=== PATIENT | male | born 1960 | race African-American/Black ===

== ENCOUNTER 2017-02-09 14:19 | Inpatient (IN) | payer OTHER ==
[~2017-02-09] VITALS: Ht 182.9 cm; Wt 110.9 kg
[2017-02-09] VITALS (19 sets, daily range): BP systolic 102–147; BP diastolic 61–79
--- NOTE | ~2017-02-09 | P ---
[facility] [place] [address] PROCEDURE REPORT Name: SHANNAN SIEGEL Room #: 439-P ADM IN M.R.#: [id number] Admission: 02/09/17 Attend Phys: Nancy Robbins Discharge: Date of : 58 Report #: [id number] THIS REPORT FOR: //name// CC: AMILCAR physician/PCP Nancy Robbins MD DATE OF SERVICE: 02/10/2017 PROCEDURE PERFORMED: Upper endoscopy with biopsies. HISTORY OF PRESENT ILLNESS: The patient is a 56-year-old male, recent history of dark stools and anemic. He had blood transfusion. He is currently on a Protonix drip. Colonoscopy was just performed as a nuclear medicine scan was positive near the hepatic flexure. However, no bleeding site was seen on colonoscopy. Plan therefore is upper endoscopy. PROCEDURE: The risks and benefits of the procedure were explained to the patient, those risks including, but not limited to bleeding, perforation, and the risk of sedation. He understood these risks and gave informed consent. Sedation was given using propofol per anesthesia. Next, using a standard Reclogn upper endoscope, the scope was placed in the patient's mouth and advanced under direct vision through the esophagus, stomach and into the second portion of the duodenum. The larynx was normal in appearance. The esophagus was normal throughout. The GE junction was normal. Overall, the gastric mucosa was normal. The pylorus was normal and patent. In the duodenal bulb and the first portion, there were 2 ulcers, the largest was approximately 1.2 cm, the smaller was 1 cm. There was no active bleeding or visible vessel. The second portion of the duodenum was normal. Gastric biopsies were obtained to rule out H. pylori. The scope was then withdrawn and the procedure terminated. The patient tolerated the procedure well. IMPRESSION: 1. Two duodenal ulcers, likely source of recent gastrointestinal bleed. 2. Otherwise, normal upper endoscopy. RECOMMENDATIONS: 1. Await biopsy results. 2. Continue PPI drip today and monitoring hemoglobin. Thank you for allowing me to participate in his care. By: 1148 [id number] Mele Frausto MD /nt
--- NOTE | ~2017-02-09 | P ---
[facility] [place] [address] PROCEDURE REPORT Name: SHANNAN SIEGEL Room #: 239-P ADM IN M.R.#: [id number] Admission: 02/09/17 Attend Phys: Nancy Robbins Discharge: Date of : 58 Report #: [id number] THIS REPORT FOR: //name// CC: AMILCAR physician/PCP Nancy Robbins MD DATE OF SERVICE: 02/10/2017 PROCEDURE PERFORMED: Colonoscopy with biopsies. HISTORY OF PRESENT ILLNESS: The patient is a 56-year-old male who presented with 3-day history of dark stools, was taking aspirin and ibuprofen, hemoglobin was 7.4, this dropped to 6.4 and he has undergone transfusion of 2 units. Bleeding scan actually showed active bleeding near the hepatic flexure. Plan is for colonoscopy; however, I also consented for possible EGD. PROCEDURE: The risks and benefits of the procedure were explained to the patient, those risks including, but not limited to bleeding, perforation, and the risk of sedation. He understood these risks and gave informed consent. Sedation was given using propofol per anesthesia. Next, a digital rectal exam was initially performed, which was normal. Next, using a standard Fujinon colonoscope, the scope was placed in the patient's anus and advanced under direct vision to the cecum. The overall prep was good. There was a lot of old blood scattered throughout the colon. Multiple washings and aspirations were performed. I spent at least 30 minutes looking throughout the colon today. The cecum and ileocecal valve were normal in appearance. The ascending, hepatic flexure was normal. Transverse colon was normal. In the descending colon, there was a single 4-mm sessile polyp. This was removed with cold forceps, otherwise normal. The sigmoid colon was normal. Rectal mucosa was normal. On retroflexion, no abnormalities were noted. I went back to the cecum several times, there was no active bleeding, no colitis, no obvious diverticula were seen. At this point, the scope was then withdrawn and the procedure terminated. The patient tolerated the procedure well. IMPRESSION: 1. Small colonic polyp. 2. Otherwise, normal colonoscopy. RECOMMENDATIONS: 1. Await biopsy results. 2. We will proceed with upper endoscopy today for further evaluation of recent GI bleed. [address] [address] PROCEDURE REPORT Name: SHANNAN SIEGEL Room #: 239-P [facility] IN M.R.#: [id number] Admission: 02/09/17 Attend Phys: Nancy Robbins Discharge: Date of : 58 Report #: [id number] Thank you for allowing me to participate in his care. By: 1145 1433 Mele Frausto MD /nt
--- NOTE | ~2017-02-09 | EKG ---
[address] [address] ELECTROCARDIOGRAM REPORT Name: SHANNAN SIEGEL Room #: 239-P ADM IN M.R.#: [id number] Admission: 02/09/17 Attend Phys: Nancy Robbins Discharge: Date of : 58 Report #: [id number] THIS REPORT FOR: //name// [facility] ED Test Date: 2017-02-09 Test Time: 15:34:58 Pat Name: SHANNAN SIEGEL Department: Room: 239 Gender: M Polysomnography Tech: MZOORinku : 1960 Requested By: Sim Barr Order Number: [id number] MD: Devyn Knight Measurements Intervals [place] Rate: 107 P: 64 TN: 149 QRS: -35 QRSD: 75 T: 79 QT: 329 QTc: 439 Interpretive Statements Sinus tachycardia Left axis deviation Nonspecific T abnormalities, lateral leads No previous ECG available for comparison Electronically Signed On 02-09-2017 22:28:55 [employer] by Devyn Knight [email or web address] <ELECTRONICALLY SIGNED> By: Devyn Knight MD 02/09/17 2228 1534 1534 Devyn Knight MD /FRANK
--- NOTE | ~2017-02-09 | S ---
[facility] [place] [address] SURGICAL PATH RPT PROCEDURE Name: SHANNAN HODGE Room #: 439-P DIS IN M.R.#: [id number] Admission: 02/09/17 Date of : 58 Discharge: 02/12/17 Report #: [id number] Path Case #: [id number] PATHOLOGY REPORT COLLECTION DATE: 02/10/2017 RECEIVED DATE: 02/10/2017 SUBMITTING PHYS: Dr. Mele Frausto OTHER PHYS: Dr. Nancy Robbins SPECIMEN(S) RECEIVED: A.Polyp at descending colon B.Bx of gastritis R/O H pylori * * * * * * * * * * * * FINAL DIAGNOSIS: A. Polyp at descending colon: - Polypoid fragment of colonic mucosa with edema and focal hyperplastic change. B. Bx of gastritis R/O H pylori: - H. pylori gastritis (Severe chronic active gastritis). - An H. pylori immunostain is POSITIVE (Block B1; appropriately reactive control). PATHOLOGIST: Pablo Murillo M.D. REPORT ELECTRONICALLY SIGNED BY: Pablo Murillo M.D. DATE/TIME: 02/14/2017 08:34 * * * * * * * * * * * * GROSS PATHOLOGY: A. Received in formalin labeled "Shannan Hodge, polyp at descending colon," is a segment of villeda soft tissue measuring 0.4 cm in maximum dimension. The specimen is submitted entirely in cassette A1. B. Received in formalin labeled "Shannan Hodge, BX of gastritis," are 3 segments of villeda soft tissue measuring 1.5 x 0.2 x 0.3 cm in aggregate dimensions and ranging from 0.3 to 0.6 cm in maximum dimension. The specimen is submitted entirely in cassette B1. (TSD; 02/10/2017) CLINICAL HISTORY: Pre-OP DX: Anemia Post-OP DX: Colon polyp, gastritis, duodenal ulcers INITIAL CPT CODE(S): A; 36370 B; [address], [address] [address] SURGICAL PATH RPT PROCEDURE Name: SHANNAN HODGE Room #: 439-P DIS IN M.R.#: [id number] Admission: 02/09/17 Date of : 58 Discharge: 02/12/17 Report #: [id number] Path Case #: [id number] Professional services performed by [facility] [address], [place] [address] Technical services performed by [facility] at [address] [place] [address], [facility] [address], [place] [address]. [facility] [place] [address] PHONE: [phone] DIRECTOR: Tuan Holley M.D. * * * END OF REPORT * * *
[2017-02-09] MEDS ORDERED: NEURONTIN600 MG PO (14:24)
[2017-02-09 14:47] LABS: ABSOLUTE NEUTROPHILS 10.9 thou/uL (1.4-8.2); BASOPHILS 0.2 % (0.0-2.0); HEMATOCRIT 22.8 % (42.0-52.0); HEMOGLOBIN 7.4 gm/dL (14.0-18.0); LYMPHOCYTES 12.8 % (24.0-44.0); MCH 28.4 pg (26.0-34.0); MCHC 32.4 g/dL (28.0-37.0); MCV 87.8 fL (80.0-100.0); MONOCYTES 4.4 % (1.0-8.0); PLATELET COUNT 197 thou/uL (150-400); POLYS 82.6 % (36.0-66.0); RDW 15.6 % (10.5-14.5); WBC 13.1 thou/uL (4.0-11.0)
[2017-02-09 14:48] LABS: MANUAL DIFF NO
[2017-02-09 14:55] LABS: ANION GAP 10 mmol/L (7-16); BUN 54 mg/dL (7-18); CHLORIDE 107 mmol/L (98-107); CO2 26 mmol/L (21-32); CREATININE 1.4 mg/dL (0.7-1.3); GLUCOSE 384 mg/dL (74-106); POTASSIUM 3.9 mmol/L (3.5-5.1); SODIUM 143 mmol/L (136-145)
[2017-02-09 15:01] LABS: ALBUMIN 2.6 g/dL (3.4-5.0); ALKALINE PHOSPHATASE 71 U/L (46-116); DIRECT BILIRUBIN < 0.1 mg/dL (<0.1-0.3); SGOT 16 U/L (15-37); SGPT 28 U/L (30-65); TOTAL BILIRUBIN 0.2 mg/dL (<0.1-1.0); TOTAL PROTEIN 5.7 g/dL (6.4-8.2)
[2017-02-09 20:04] LABS: INR 1.1; PROTIME 11.1 Seconds (9.3-11.4)
[2017-02-09 20:05] LABS: APTT 20.2 Seconds (24.5-32.8)
[2017-02-09 20:14] LABS: HEMATOCRIT 19.7 % (42.0-52.0); HEMOGLOBIN 6.4 gm/dL (14.0-18.0)
[2017-02-10] VITALS (23 sets, daily range): BP systolic 97–128; BP diastolic 47–82
[2017-02-10 00:56] LABS: HEMATOCRIT 21.3 % (42.0-52.0)
[2017-02-10 04:27] LABS: HEMOGLOBIN 6.6 gm/dL (14.0-18.0)
[2017-02-10 04:29] LABS: HEMATOCRIT 20.2 % (42.0-52.0); MCH 29.8 pg (26.0-34.0); MCHC 32.9 g/dL (28.0-37.0); MCV 90.3 fL (80.0-100.0); RBC 2.23 mil/uL (4.50-6.00); RDW 16.6 % (10.5-14.5)
[2017-02-10 04:36] LABS: CALCIUM 8.4 mg/dL (8.5-10.1); CREATININE 1.1 mg/dL (0.7-1.3); POTASSIUM 3.8 mmol/L (3.5-5.1)
[2017-02-10 04:39] LABS: INR 1.1
[2017-02-10 09:38] LABS: HEMATOCRIT 21.9 % (42.0-52.0); HEMOGLOBIN 7.3 gm/dL (14.0-18.0)
[2017-02-11 03:26] LABS: HEMATOCRIT 20.2 % (42.0-52.0); HEMOGLOBIN 6.7 gm/dL (14.0-18.0); MCH 29.8 pg (26.0-34.0); MCHC 33.4 g/dL (28.0-37.0); MCV 89.3 fL (80.0-100.0); RBC 2.26 mil/uL (4.50-6.00); RDW 16.5 % (10.5-14.5); WBC 9.3 thou/uL (4.0-11.0)
[2017-02-11 04:33] VITALS: BP 125/65
[2017-02-11 07:22] VITALS: BP 128/72
[2017-02-11 16:00] VITALS: BP 114/76
[2017-02-11 16:32] LABS: HEMATOCRIT 25.2 % (42.0-52.0); HEMOGLOBIN 8.4 gm/dL (14.0-18.0)
[2017-02-11 19:42] VITALS: BP 122/74
[2017-02-12 03:55] VITALS: BP 119/72
[2017-02-12 06:17] LABS: HEMATOCRIT 23.3 % (42.0-52.0); HEMOGLOBIN 7.8 gm/dL (14.0-18.0); MCH 29.7 pg (26.0-34.0); MCHC 33.6 g/dL (28.0-37.0); MCV 88.3 fL (80.0-100.0); RBC 2.64 mil/uL (4.50-6.00); RDW 15.7 % (10.5-14.5); WBC 8.2 thou/uL (4.0-11.0)
[2017-02-12 08:00] VITALS: BP 136/83
[2017-02-12] MEDS ORDERED: IRON325 PO (10:22)
[2017-02-12] MEDS ORDERED: PANTOPRAZOLE SO40 M1 PO (10:23)
[2017-02-12 10:26] VITALS: BP 136/83
== END 2017-02-12 11:50 | disposition home or self-care (01) | DRG 378 ==
LOC: ER 14:19 → EROBS 16:04 → ICU 17:06 → 4S 02-10 15:11
PROVIDERS: Hospitalist; Internal Medicine Gastroenterology; Nurse Practitioner; Specialist
PROC: 30233N1 Transfusion of Nonautologous Red Blood Cells into Peripheral Vein, Percutaneous Approach (ICD-10-PCS; principal; 2017-02-10)
PROC: 0DBM8ZZ Excision of Descending Colon, Via Natural or Artificial Opening Endoscopic (ICD-10-PCS; 2017-02-10)
PROC: 0DB68ZX Excision of Stomach, Via Natural or Artificial Opening Endoscopic, Diagnostic (ICD-10-PCS; 2017-02-10)
DX: K26.4 Chronic or unspecified duodenal ulcer with hemorrhage (principal); D62 Acute posthemorrhagic anemia; I95.9 Hypotension, unspecified; E11.9 Type 2 diabetes mellitus without complications; K63.5 Polyp of colon; K21.9 Gastro-esophageal reflux disease without esophagitis; Z87.11 Personal history of peptic ulcer disease
CPT/HCPCS: 10078; 10102; 62110; 62900